=== PATIENT | female | born 2000 | race Caucasian/White ===

== ENCOUNTER → 2023-02-10 | Outpatient (CLI) | payer OTHER, SELFPAY ==
[2023-02-10 07:14] LABS: Hematocrit 34.4 % (37-47); Hemoglobin 11.2 g/dL (12.0-15.0); Mean Corp Hgb Conc 32.6 g/dL (32-36); Mean Corpuscular Hgb 29.6 pg (27.0-32.0); Mean Corpuscular Volume 90.8 fL (81-99); Mean Platelet Vol. 9.8 fl (6.2-12.0); Platelet Count 295 K/mm3 (150-450); RBC Distribution Width CV 12.3 % (11.6-14.6); RBC Distribution Width SD 40.5 fl (35.1-43.9); Red Blood Count 3.79 M/mm3 (4.2-5.4); White Blood Count 9.1 K/mm3 (4.4-11.0)
[2023-02-10 08:26] LABS: HIV - WCH Non-Reactive (Nonreactive); Hepatitis B Surface Antigen Non-Reactive (Nonreactive); Hepatitis C Antibody Non-Reactive (Nonreactive); Rubella IgG Reactive (Nonreactive); Syphilis Antibodies Non-reactive
== END | disposition home or self-care (01) ==
PROVIDERS: PCP Family Medicine; Referring Provider Obstetrics & Gynecology; Visit Provider Obstetrics & Gynecology
DX: Z33.1 Pregnant state, incidental (principal)
CPT/HCPCS: 36415; 85027; 86703; 86762; 86780; 86803; 86850; 86900; 86901; 87340

== ENCOUNTER → 2023-05-20 | Outpatient (CLI) | payer OTHER, SELFPAY ==
[2023-05-20 08:06] LABS: Absolute Lymphocyte Count 2.37 X10^3/uL (0.83-4.51); Absolute Neutrophil Count 4.9 X10^3/uL (2.0-7.7); Basophil# 0.04 X10^3/uL; Basophil% 0.5 % (0-1); Eosinophil# 0.13 X10^3/uL; Eosinophils% 1.6 % (0-5); Hematocrit 30.9 % (37-47); Lymphocyte # 2.37 X10^3/ul (0.83-4.51); Mean Corp Hgb Conc 32.4 g/dL (32-36); Mean Corpuscular Hgb 30.4 pg (27.0-32.0); Mean Corpuscular Volume 93.9 fL (81-99); Mean Platelet Vol. 9.4 fl (6.2-12.0); Monocyte# 0.68 X10^3/uL; Monocyte% 8.3 % (0-10); NRBC Flagged by Analyzer 0 % (0-5); Neutrophil # 4.89 X10^3/uL (2.7-7.7); Neutrophil % 59.9 % (47-70); Platelet Count 277 K/mm3 (150-450); RBC Distribution Width CV 12.2 % (11.6-14.6); RBC Distribution Width SD 42.3 fl (35.1-43.9); Red Blood Count 3.29 M/mm3 (4.2-5.4); White Blood Count 8.2 K/mm3 (4.4-11.0)
[2023-05-20 08:35] LABS: Glucose Challenge Gest 1H 50g 129 mg/dL (70-140)
[2023-05-23 14:53] LABS: Syphilis Antibodies Non-reactive
== END | disposition home or self-care (01) ==
LOC: LAB 07:33
PROVIDERS: PCP Family Medicine; Referring Provider Obstetrics & Gynecology; Visit Provider Obstetrics & Gynecology
DX: Z34.92 Encounter for supervision of normal pregnancy, unspecified, second trimester (principal)
CPT/HCPCS: 36415; 82950; 85025; 86780

== ENCOUNTER → 2023-06-30 | Outpatient (CLI) | payer OTHER, SELFPAY ==
[2023-06-30 09:25] LABS: Absolute Lymphocyte Count 2.97 X10^3/uL (0.83-4.51); Basophil# 0.03 X10^3/uL; Basophil% 0.3 % (0-1); Eosinophil# 0.09 X10^3/uL; Eosinophils% 0.8 % (0-5); Hematocrit 30.2 % (37-47); Hemoglobin 9.9 g/dL (12.0-15.0); Lymphocyte # 2.97 X10^3/ul (0.83-4.51); Lymphocyte % 26.5 % (19-41); Mean Corp Hgb Conc 32.8 g/dL (32-36); Mean Corpuscular Hgb 30.7 pg (27.0-32.0); Mean Corpuscular Volume 93.5 fL (81-99); Mean Platelet Vol. 10.6 fl (6.2-12.0); Monocyte# 1.03 X10^3/uL; Monocyte% 9.2 % (0-10); NRBC Flagged by Analyzer 0 % (0-5); Neutrophil % 62.4 % (47-70); Platelet Count 285 K/mm3 (150-450); RBC Distribution Width CV 12.4 % (11.6-14.6); RBC Distribution Width SD 42.5 fl (35.1-43.9); RET-HE 30.9 pg (30-35); Red Blood Count 3.23 M/mm3 (4.2-5.4); Reticulocyte Count 1.87 % (0.5-1.5); White Blood Count 11.2 K/mm3 (4.4-11.0)
[2023-06-30 09:46] LABS: Ferritin 11 ng/mL (8-252); Iron 148 ug/dL (50-170); Iron Binding Capacity,Total 554 ug/dL (250-450); PERCENT IRON SATURATION 26.7 % (15.0-55.0)
== END | disposition home or self-care (01) ==
LOC: LAB 07:54
PROVIDERS: PCP Family Medicine; Referring Provider Advanced Practice Midwife; Visit Provider Advanced Practice Midwife
DX: O99.013 Anemia complicating pregnancy, third trimester (principal); O99.613 Diseases of the digestive system complicating pregnancy, third trimester; K90.9 Intestinal malabsorption, unspecified; Z3A.00 Weeks of gestation of pregnancy not specified
CPT/HCPCS: 36415; 82728; 83540; 83550; 85025; 85045

== ENCOUNTER 2023-07-12 09:52 | Outpatient (CLI) | payer OTHER, SELFPAY ==
[2023-07-12 10:17] VITALS: BP 135/70; PULSE 89; RESP 16; TEMP 36.2; O2SAT 98; BMI 27.4
[2023-07-12] MEDS: Iron Sucrose Complex 200 MG in 0.9% Normal Saline (100mL Bag) 100 ML 220 MG IV (10:39)
[2023-07-12 11:51] VITALS: BP 110/55; PULSE 88; RESP 16; TEMP 36.3; O2SAT 98
== END 2023-07-12 09:53 | disposition home or self-care (01) ==
LOC: MEDOUTP 09:52
PROVIDERS: PCP Family Medicine; Referring Provider Obstetrics & Gynecology; Visit Provider Obstetrics & Gynecology
DX: O99.013 Anemia complicating pregnancy, third trimester (principal); O99.613 Diseases of the digestive system complicating pregnancy, third trimester; Z3A.00 Weeks of gestation of pregnancy not specified
CPT/HCPCS: 96365; J1756; J7050; A4216

== ENCOUNTER 2023-07-14 09:53 | Outpatient (CLI) | payer OTHER, SELFPAY ==
[2023-07-14 10:08] VITALS: BP 122/66; PULSE 83; RESP 16; TEMP 36.1; O2SAT 99; BMI 27.4
[2023-07-14] MEDS: 0.9% NaCl IVPB Med Flush (250 mL) 15 ML IV (10:18)
[2023-07-14] MEDS: 0.9% NaCl Peripheral Flush Adult/Peds IV (10:18)
[2023-07-14] MEDS: Iron Sucrose Complex 200 MG in 0.9% Normal Saline (100mL Bag) 100 ML 220 MG IV (10:18)
[2023-07-14 11:02] VITALS: BP 117/61; PULSE 84; RESP 16; O2SAT 100
== END 2023-07-14 09:54 | disposition home or self-care (01) ==
LOC: MEDOUTP 09:54
PROVIDERS: PCP Family Medicine; Referring Provider Obstetrics & Gynecology; Visit Provider Obstetrics & Gynecology
DX: O99.013 Anemia complicating pregnancy, third trimester (principal); O99.613 Diseases of the digestive system complicating pregnancy, third trimester; K90.9 Intestinal malabsorption, unspecified; Z3A.00 Weeks of gestation of pregnancy not specified
CPT/HCPCS: 96365; J1756; J7050; A4216

== ENCOUNTER 2023-07-17 13:23 | Outpatient (CLI) | payer OTHER, SELFPAY ==
[2023-07-17] MEDS: 0.9% NaCl Peripheral Flush Adult/Peds IV (13:30)
[2023-07-17 13:38] VITALS: BP 115/63; PULSE 90; RESP 16; TEMP 36.4; O2SAT 97; BMI 27.4
[2023-07-17] MEDS: 0.9% NaCl IVPB Med Flush (250 mL) 15 ML IV (13:40)
[2023-07-17] MEDS: Iron Sucrose Complex 200 MG in 0.9% Normal Saline (100mL Bag) 100 ML 220 MG IV (13:55)
[2023-07-17 14:48] VITALS: BP 120/66; PULSE 91
== END 2023-07-17 13:24 | disposition home or self-care (01) ==
LOC: MEDOUTP 13:23
PROVIDERS: PCP Family Medicine; Referring Provider Obstetrics & Gynecology; Visit Provider Obstetrics & Gynecology
DX: O99.013 Anemia complicating pregnancy, third trimester (principal); Z3A.00 Weeks of gestation of pregnancy not specified
CPT/HCPCS: 96365; J1756; J7050; A4216

== ENCOUNTER 2023-07-19 09:22 | Outpatient (CLI) | payer OTHER, SELFPAY ==
[2023-07-19 09:27] VITALS: BP 126/70; PULSE 78; RESP 16; TEMP 36.2; O2SAT 99; BMI 27.4
[2023-07-19] MEDS: 0.9% NaCl IVPB Med Flush (250 mL) 15 ML IV (10:02)
[2023-07-19] MEDS: 0.9% NaCl Peripheral Flush Adult/Peds IV (10:02)
[2023-07-19] MEDS: Iron Sucrose Complex 200 MG in 0.9% Normal Saline (100mL Bag) 100 ML 220 MG IV (10:02)
[2023-07-19 10:51] VITALS: BP 113/64; PULSE 95; RESP 16; TEMP 36.6; O2SAT 98
== END 2023-07-19 09:23 | disposition home or self-care (01) ==
LOC: MEDOUTP 09:22
PROVIDERS: PCP Family Medicine; Referring Provider Obstetrics & Gynecology; Visit Provider Obstetrics & Gynecology
DX: O99.013 Anemia complicating pregnancy, third trimester (principal); Z3A.00 Weeks of gestation of pregnancy not specified
CPT/HCPCS: 96365; J1756; J7050; A4216

== ENCOUNTER 2023-07-21 09:03 | Outpatient (CLI) | payer OTHER, SELFPAY ==
[2023-07-21 09:18] VITALS: BP 133/73; PULSE 96; RESP 16; TEMP 35.8; O2SAT 98; BMI 27.4
[2023-07-21] MEDS: 0.9% NaCl Peripheral Flush Adult/Peds IV (09:22)
[2023-07-21] MEDS: 0.9% NaCl IVPB Med Flush (250 mL) 15 ML IV (09:23)
[2023-07-21] MEDS: Iron Sucrose Complex 200 MG in 0.9% Normal Saline (100mL Bag) 100 ML 220 MG IV (09:23)
[2023-07-21 10:10] VITALS: BP 116/75; PULSE 87; RESP 16; TEMP 35.8; O2SAT 97
== END 2023-07-21 09:04 | disposition home or self-care (01) ==
PROVIDERS: PCP Family Medicine; Referring Provider Obstetrics & Gynecology; Visit Provider Obstetrics & Gynecology
DX: O99.013 Anemia complicating pregnancy, third trimester (principal); Z3A.00 Weeks of gestation of pregnancy not specified
CPT/HCPCS: 96365; J1756; J7050; A4216

== ENCOUNTER 2023-08-09 11:20 | Inpatient (IN) | payer OTHER, SELFPAY ==
[2023-08-09] VITALS (23 sets, daily range): BP systolic 109–138; BP diastolic 55–88; PULSE 83–122; TEMP 36.3–37.2; O2SAT 91–100; BMI 28.8
[2023-08-09] MEDS: LACTATED RINGERS 500 ML 999 ML IV ×3 (12:26→17:17)
[2023-08-09] MEDS: Lactated Ringers 1,000 ML 50 ML IV (12:26)
[2023-08-09 12:49] LABS: Absolute Lymphocyte Count 1.67 X10^3/uL (0.83-4.51); Absolute Neutrophil Count 5.6 X10^3/uL (2.0-7.7); Basophil# 0.03 X10^3/uL; Basophil% 0.4 % (0-1); Eosinophil# 0.04 X10^3/uL; Eosinophils% 0.5 % (0-5); Hematocrit 37.3 % (37-47); Hemoglobin 11.9 g/dL (12.0-15.0); Lymphocyte # 1.67 X10^3/ul (0.83-4.51); Lymphocyte % 21.3 % (19-41); Mean Corp Hgb Conc 31.9 g/dL (32-36); Mean Corpuscular Hgb 30.4 pg (27.0-32.0); Mean Corpuscular Volume 95.4 fL (81-99); Mean Platelet Vol. 10.7 fl (6.2-12.0); Monocyte% 5.1 % (0-10); NRBC Flagged by Analyzer 0 % (0-5); Neutrophil # 5.62 X10^3/uL (2.7-7.7); Neutrophil % 71.8 % (47-70); Platelet Count 243 K/mm3 (150-450); RBC Distribution Width CV 14.1 % (11.6-14.6); RBC Distribution Width SD 49.1 fl (35.1-43.9); Red Blood Count 3.91 M/mm3 (4.2-5.4); White Blood Count 7.8 K/mm3 (4.4-11.0)
[2023-08-09] MEDS: 0.9% Saline Lock 10 ML Syringe IV ×2 (12:53→22:25)
[2023-08-09 13:32] LABS: Syphilis Antibodies Non-reactive
--- NOTE | 2023-08-09 13:33 | HP.PCM.OB_ITS ---
HPI - General General Date of Admission: 08/09/23 Date of Service: 08/09/23 Chief Complaint: decelerations HPI Narrative LUIS ANSARI, is a 22 F who presents at 38-5/7 weeks from the office for decelerations on nonstress test. Patient presented for her routine visit today. There is an audible deceleration when I was Doppler and the heart tones. She then had a nonstress test performed that showed some intermit tent late decelerations and variable decelerations. Overall reactive with moderate variability. Patient did not appreciate any regular contractions, she denied any vaginal bleeding or leaking of fluid. She denied any headache or visual changes. Maternal Data Information Final NATALIE: [birth year] Gestational age: 38 5/7 PFSH PFSH Home Medications vit no.95-ferrous fumarate 28 mg-folic acid 800 mcg tablet () 1 tab PO DAILY 07/12/23 [History Last Taken 08/08/23 12:00 1 TAB] Allergy/AdvReac Type Severity Reaction Status Date / Time No Known Allergies Allergy Verified 08/09/23 12:04 Social History Smoking Status: Never smoker History Elective abortions Hx Para 0 Spontaneous abortions Hx # Term Pregnancies Ectopic pregnancies Hx # Pregnancies Multiple births # of living children ROS Constitutional Constitutional: Denies fatigue, fever(s) or malaise Eyes Eyes: Denies change in vision ENT HEENT: Denies dizziness or headache(s) Cardiovascular Cardiovascular: Denies chest pain, dyspnea or lightheadedness Respiratory/Chest Respiratory/Chest: Denies cough or dyspnea Gastrointestinal Gastrointestinal: Denies change in bowel habits Genitourinary Genitourinary: Denies burning urination or genital lesions Integumentary Integumentary: Denies rash Neurologic Neurologic: Denies confusion, dizziness, headache(s), numbness or weakness Vital Signs Vital Signs Vital Signs: 08/09/23 11:52 08/09/23 11:52 08/09/23 11:52 Pulse Rate 85 Blood Pressure 138/88 H BP Systolic 138 BP Diastolic 88 Pulse Ox 99 Weight Weight: 73.652 kg Body Mass Index (BMI) 28.8 Physical Exam Const alert and no apparent distress General Appearance: cooperative HEENT normocephalic Resp normal respiratory effort Cardio regular rate GI soft to palpation GI Narrative: gravid, nontender, appropriate for gestational age Extremity no calf tenderness General Extremity: edema Skin no wounds Rashes: No rashes noted Psych activity/motor behavior normal Labs Labs Labs: Blood Type AB POSITIVE Antibody Screen NEGATIVE Hct 37.3 % (37-47) Hgb 11.9 g/dL (12.0-15.0) L Syphilis Total Ab Non-reactive Rubella IgG Antibody Reactive (Nonreactive) Hep Bs Antigen Non-Reactive (Nonreactive) Hepatitis C Antibody Non-Reactive (Nonreactive) HIV 1&2 Antibody Non-Reactive (Nonreactive) Glucose 1 Hr 50 gm 129 mg/dL (70-140) Assessment & Plan (1) 38 weeks gestation of : PLAN: Intermittent decelerations. Risk benefits and alternatives to induction of labor at 30-5/7 weeks with decelerations versus continuing the with close surveillance were discussed with patient, her questions were answered to her satisfaction. Recommend induction of labor. Risk benefits and alternatives were reviewed and consent was signed. Estimated weight is less than 4500 g and pelvis clinically adequate to expect vaginal delivery. Shipman catheter placed over stylette through internal cervical os in the usual sterile fashion and balloon inflated with 40 cc of normal saline. Placement over internal os confirmed. Will initiate Pitocin if needed. Contractions too close together at this point to start Cytotec. Routine pain control measures as needed. (2) Nulliparity: (3) heart rate decelerations affecting management of mother:
[2023-08-09] MEDS: 0.9% Normal Saline Single 100 ML IV.SOLN. INTRA-UTER (13:37)
[2023-08-09] MEDS: Penicillin G Pot 5,000,000 UNITS in 0.9% Normal Saline (100mL MB+) 100 ML 150 UNITS IV (14:44)
[2023-08-09] MEDS: Terbutaline 1 MG/ML Vial 0.25 MG SC (16:25)
[2023-08-09] MEDS: fentaNYL-bupivacaine (epidural) 100 ML BAG EPIDURAL ×2 (18:15→22:23)
[2023-08-09] MEDS: Penicillin G 3,000,000 Units 50 ML 100 UNITS IV ×2 (19:38→23:51)
[2023-08-09] MEDS: Oxytocin 15 Units/NS 250ml 15 UNITS/250 ML IV.SOLN 2 UNITS IV (20:37)
[2023-08-09] MEDS: Lactated Ringers 1,000 ML 200 ML IV (21:32)
[2023-08-09] MEDS: Ondansetron 4 MG/2 ML Vial IV (22:25)
[2023-08-09] MEDS: Acetaminophen 500 MG Tablet PO (22:26)
--- NOTE | 2023-08-09 22:39 | NURSING ---
straight cath to be completed per protocol.
[2023-08-10] VITALS (29 sets, daily range): BP systolic 116–143; BP diastolic 61–82; PULSE 76–171; RESP 16; TEMP 36.4–37.2; O2SAT 82–100
[2023-08-10] MEDS: Lactated Ringers 1,000 ML 200 ML IV (03:12)
[2023-08-10] MEDS: fentaNYL-bupivacaine (epidural) 100 ML BAG EPIDURAL (03:24)
[2023-08-10] MEDS: 0.9% Saline Lock 10 ML Syringe IV (03:55)
[2023-08-10] MEDS: Penicillin G 3,000,000 Units 50 ML 100 UNITS IV (03:55)
[2023-08-10] MEDS: Ondansetron 4 MG/2 ML Vial IV (03:55)
[2023-08-10] MEDS: LACTATED RINGERS 500 ML 999 ML IV (04:28)
[2023-08-10] MEDS: Acetaminophen 500 MG Tablet PO (06:18)
--- NOTE | 2023-08-10 06:57 | EX.PCM.OBRPT ---
Assessment & Plan (1) (spontaneous vaginal delivery): Maternal Data Information Final NATALIE: [birth year] Gestational age: 38 6/7 Vaginal Delivery Maternal Presentation Maternal Presentation: Medically Indicated Induction Type of Induction: Pitocin, Shipman Bulb and Amniotomy Medical Reason for Induction: - ( decelerations) Operative Information Date of Procedure: 08/10/23 Pre-Operative Diagnosis: labor Post-Operative Diagnosis: same Surgery / Procedure Performed: Spontaneous Vaginal Delivery Type of Anesthesia: Epidural Special Medications: none Drain: Shipman to straight drain Estimated Blood Loss: 200 Time of Delivery: 06:41 Findings Description of Procedure: A vigorous female was delivered SEE over first-degree perineal laceration. A loose nuchal cord ?1 was easily reduced. The remainder the was delivered with maternal pushing and gentle traction only in less than 15 seconds. The Pitocin infusion was initiated for active management of the third stage. The cord was clamped and cut after cord pulsations ceased. The infant was attended to by the waiting nursing staff. The placenta was delivered spontaneously and intact. The cervix and vagina were intact. The second-degree perineal laceration was repaired with 2-0 Vicryl suture in a running standard fashion. Sponge and needle counts were correct. A vaginal sweep was completed by me. Presentation: SEE Amniotic Membrane Rupture Type: Artificial Amniotic Fluid Description: Clear Placental Delivery Description: Spontaneous Placenta Disposition: [facility] Cord Vessel Description: 3 Vessels Cord Entanglement: Around neck x 1, loose Nuchal Cord Compression: Without compression Infant A Gender: Female (1 minute): 8 (5 minute): 9 Delayed Cord Clamping: Yes Post Vaginal Delivery Medications Given After Delivery: IV Pitocin and IM Pitocin Episiotomy Description: None Laceration: 1st degree Complication Complications: None
[2023-08-10] MEDS: Oxytocin 15 Units/NS 250ml 15 UNITS/250 ML IV.SOLN 83 UNITS IV (07:20)
[2023-08-10] MEDS: Ibuprofen 600 MG Tablet PO (11:53)
--- NOTE | 2023-08-10 11:53 | NURSING ---
epidural catheter removed and blue tip intact
[2023-08-10] MEDS: Acetaminophen 500 MG Tablet 1000 MG PO (16:41)
--- NOTE | 2023-08-10 19:15 | NURSING ---
LE: Admission documentation stated that Tony declined Hep B for . Verified that Tony is requesting to get Hep B for infant.
[2023-08-11] VITALS (7 sets, daily range): BP systolic 106–129; BP diastolic 57–71; PULSE 70–86; RESP 16; TEMP 36.4–36.8; O2SAT 97–99
[2023-08-11] MEDS: Acetaminophen 500 MG Tablet 1000 MG PO ×2 (01:39→07:25)
--- NOTE | 2023-08-11 06:54 | PCM.DC.SUM ---
Providers Date of Admission: 08/09/23 Primary Care Physician: Dr. Vini Gordon DO Reason For Visit: VAGINAL DELIVERY Diagnosis Discharge Diagnosis (1) (spontaneous vaginal delivery): Status: Acute Code(s): O80 - Encounter for full-term uncomplicated delivery (2) Care and examination of lactating mother: Status: Acute Code(s): Z39.1 - Encounter for care and examination of lactating mother (3) Laceration, obstetrical, first degree: Status: Acute Code(s): O70.0 - First degree perineal laceration during delivery Plan PPD 1 Pain control Routine care support D/C/ home with follow up in office Medications at Discharge Home Medications vit no.95-ferrous fumarate 28 mg-folic acid 800 mcg tablet () 1 tab PO DAILY 07/12/23 Hospital Course Operations None Procedures None Summary of Care Provided Minutes Spent on Discharge: 15 Hospital Course: Patient had . Hospital course was uneventful. Physical Exam Narrative Patient seen at bedside. Feeling good. Ambulating and voiding without difficulty. with minimal support. Denies any headache, vision changes, SOB, or CP. Desires discharge home today. Const alert and no apparent distress General Appearance: cooperative and comfortable Exam Limitations: no limitations HEENT normocephalic Eyes General Eye: normal appearance of both eyes Neck full ROM General: normal visual inspection Chest Chest: symmetrical chest wall rise Resp normal respiratory effort and normal air movement Effort and Inspection: symmetric chest movement Auscultation: clear to auscultation bilaterally Cardio regular rate and regular rhythm GI normal to inspection, nondistended, normoactive bowel sounds Back/Spine normal ROM Extremity full ROM and no calf tenderness General Extremity: normal exam except as noted Skin no rashes or lesions noted Neuro CN's II-XII intact bilaterally Psych mental status grossly normal Weight / BMI Weight Weight: 162 lb 6 oz Body Mass Index (BMI) 28.8 ABG / Lab / Microbiology Data 08/09/23 12:10 D/C Instructions Discharge Diet: No restrictions Discharge Activity: Return to Normal Activity, May Shower and May Take a Tub Bath May resume sexual activity in: 4-6 weeks Weight Bearing Status: Weight bearing as tolerated Call your doctor if you observe: Fever of 101 or Higher, Inability to urinate, Using more than 1 pad per hour, Shortness of breath, Dizziness, Swelling in the ankles, Chest pain, Calf discomfort and Uncontrolled pain Please Follow Up With: Steph Rolle CNM When: Within 10 days Meaningful Use Info Meaningful Use Diagnoses (Choose all that apply): None applicable Discharge Plan Admission Admit Date/Time: 08/09/23 11:20 Primary Reason for Your Visit: Labor and Delivery Attending Provider: Yuli Mueller Primary Care Provider: Vini Gordon Discharge Orders/Prescriptions Prescriptions: No Action PNV cmb#95-ferrous fumarate-FA [] 28 mg iron- 800 mcg tablet 1 tab PO DAILY Referrals / Follow Up: Vini Gordon DO [Primary Care Provider] - Disposition Disposition (needs filled in before D/C Order can be placed): Home, Self Care
== END 2023-08-11 10:45 | disposition home or self-care (01) | DRG 807 ==
PROVIDERS: Admitting Provider Obstetrics & Gynecology; PCP Family Medicine; Visit Provider Obstetrics & Gynecology
DX: O76 Abnormality in fetal heart rate and rhythm complicating labor and delivery (principal); Z37.0 Single live birth; O69.81X0 Labor and delivery complicated by cord around neck, without compression, not applicable or unspecified; O70.0 First degree perineal laceration during delivery; Z3A.38 38 weeks gestation of pregnancy
CPT/HCPCS: 59025; 59050; 76815; 85025; 86780; 86850; 86900; 86901; 99221; J7120; A4216; G0378; J2405